=== PATIENT | female | born 1965 | race Two or more races ===

== ENCOUNTER 2018-02-11 21:09 | Emergency (ER) | payer OTHER ==
[~2018-02-11] VITALS: Ht 162.6 cm; Wt 70.3 kg
[2018-02-11 22:30] VITALS: BP 135/80
[2018-02-11] MEDS ORDERED: Norco 5mg/325mg tab ORAL ONE (22:30)
[2018-02-11] MEDS ORDERED: HYDROCODON-ACE1 EA15 ORAL (22:45)
[2018-02-11] MEDS ORDERED: IBUPROFEN600 MG ORAL (22:45)
[2018-02-11] MEDS ORDERED: PREDNISONE20 MG ORAL (22:45)
--- NOTE | 2018-02-11 22:46 | Emergency Room Report ---
History of Present Illness General Chief Complaint: Neck Pain Source: Patient Present Illness HPI This is a 53-year-old female without any past medical history. She presents with chief complaint of neck pain and left arm pain. Neck pain been ongoing for about a week. Arm pain been ongoing for about 2 days. Pain is 8 out of 10. Worse with movement. Also with numbness in her fingers. No trauma. Worse with movement of her neck. Has not anything for it. No incontinence of bowel or urine. No fever. Allergies: Coded Allergies: No Known Allergies (Unverified , 02/11/18) Patient History Past Medical History: none, see triage record, old chart reviewed Past Surgical History: other Pertinent Family History: none Social History: Denies: smoking Last Menstrual Period: 2007 Now: No : 3 Para: 3 Immunizations: other Reviewed Nursing Documentation: PMH: Agreed; PSxH: Agreed Nursing Documentation-PMH Past Medical History: No Stated History Review of Systems Eye: Denies: eye pain, blurred vision ENT: Denies: ear pain, nose congestion, throat swelling Respiratory: Denies: cough, shortness of breath Cardiovascular: Denies: chest pain, palpitations Gastrointestinal: Denies: abdominal pain, diarrhea, nausea, vomiting Musculoskeletal: Denies: back pain, joint pain Skin: Denies: rash Neurological: Denies: headache, numbness Endocrine: Denies: increased thirst, increased urine Hematologic/Lymphatic: Denies: easy bruising All Other Systems: negative except mentioned in HPI Physical Exam Vital Signs Date Time Temp Pulse Resp B/P (MAP) Pulse Ox O2 Delivery O2 Flow Rate FiO2 02/11/18 22:00 98.2 66 17 141/90 98 Room Air vitals normal Sp02 EP Interpretation: reviewed, normal General Appearance: well appearing, no apparent distress, alert Head: normocephalic, atraumatic Eyes: bilateral eye PERRL, bilateral eye EOMI ENT: hearing grossly normal, normal pharynx Neck: full range of motion, supple, no meningismus Respiratory: chest non-tender, lungs clear, normal breath sounds Cardiovascular #1: regular rate, rhythm, no murmur Gastrointestinal: normal bowel sounds, non tender, no mass, no organomegaly, no bruit, non-distended Musculoskeletal: back normal, gait/station normal, normal range of motion Psychiatric: mood/affect normal Skin: warm/dry Medical Decision Making Diagnostic Impression: Primary Impression: Neck pain Additional Impression: Cervical radiculopathy ER Course Patient with cervical radiculopathy. No evidence of ACS, PE, dissection, cauda equina syndrome, spinal epidural abscess or neoplastic process. We'll discharge home. Last Vital Signs Date Time Temp Pulse Resp B/P (MAP) Pulse Ox O2 Delivery O2 Flow Rate FiO2 02/11/18 22:00 98.2 66 17 141/90 98 Room Air Status: improved Disposition: HOME, SELF-CARE Condition: Stable Scripts Prednisone* (PREDNISONE*) 20 Mg Tablet 40 MG ORAL DAILY, #8 TAB Prov: Stalin Paulson MD 02/11/18 Ibuprofen* (MOTRIN*) 600 Mg Tablet 600 MG ORAL THREE TIMES A DAY, #30 TAB 0 Refills Prov: Stalin Paulson MD 02/11/18 Hydrocodone/Acetaminophen 5-325* (HYDROCODONE/ACETAMINOPHEN 5-325*) 1 Each Tablet 1 TAB ORAL Q6H PRN for For Pain, #20 TAB 0 Refills Prov: Stalin Paulson MD 02/11/18 Referrals: [facility],REFERRING (PCP) Additional Instructions: Follow-up with your doctor in a week. You may benefit from MRI of your neck if symptoms do improve. Return if symptom worsen. Stalin Paulson MD Feb 11, 2018 22:46
[2018-02-11 23:30] VITALS: BP 135/80
== END 2018-02-11 23:00 | disposition home or self-care (01) ==
LOC: EMR 22:38
DX: M54.2 Cervicalgia (principal); M54.12 Radiculopathy, cervical region
CPT/HCPCS: 99283; J7512

== ENCOUNTER 2018-02-18 18:13 | Emergency (ER) | payer BC, OTHER ==
[~2018-02-18] VITALS: Ht 162.6 cm; Wt 71.7 kg
[~2018-02-18 18:13] MED LIST: HYDROCODON-ACE1 EA15 ORAL; IBUPROFEN600 MG ORAL; PREDNISONE20 MG ORAL
[2018-02-18] MEDS ORDERED: NKM (18:23)
[2018-02-18 18:35] VITALS: BP 144/98
[2018-02-18] MEDS ORDERED: Norco 5mg/325mg tab ORAL ONE (18:45)
[2018-02-18] MEDS ORDERED: Methocarbamol 500mg tab ORAL ONE (18:45)
--- NOTE | 2018-02-18 18:45 | Emergency Room Report ---
History of Present Illness General Chief Complaint: Neck Pain Source: Patient Present Illness HPI 53-year-old female patient presents ER complaining of left-sided neck pain. reports pain radiates down to her arm for the past 10 days. Erwin was seen here 1 week ago for similar symptoms, states took medications provided at that time, states pain did not improve. Erwin has follow-up appointment on Friday for further evaluation and treatment by her primary care doctor. Reports pain still persistent so decided to come to ER for further treatment, states she was told by doctors office to come to the ER for an MRI of her neck. Denies injury or trauma since previous visit. Denies injury or trauma preceding initial symptom onset. Denies fever, chest pain, shortness of breath, abdominal pain. Denies WALKER or vision changes. Allergies: Coded Allergies: No Known Allergies (Unverified , 02/11/18) Patient History Past Medical History: see triage record Last Menstrual Period: menopause Reviewed Nursing Documentation: PMH: Agreed; PSxH: Agreed Nursing Documentation-PMH Past Medical History: No Stated History Review of Systems All Other Systems: negative except mentioned in HPI Physical Exam Vital Signs Date Time Temp Pulse Resp B/P (MAP) Pulse Ox O2 Delivery O2 Flow Rate FiO2 02/18/18 18:20 98.1 61 18 144/98 98 Room Air Sp02 EP Interpretation: reviewed, normal General Appearance: well appearing, no apparent distress, alert, GCS 15, non- toxic Head: normocephalic, atraumatic Eyes: bilateral eye normal inspection, bilateral eye PERRL ENT: hearing grossly normal, normal pharynx, no angioedema, normal voice, uvula midline, moist mucus membranes Neck: full range of motion, no meningismus, no bony tend Respiratory: lungs clear, normal breath sounds, no rhonchi, no respiratory distress, no accessory muscle use, no wheezing, speaking full sentences Cardiovascular #1: regular rate, rhythm, no edema Cardiovascular #2: 2+ radial (R), 2+ radial (L) Musculoskeletal: back normal, digits/nails normal, gait/station normal, normal range of motion, non-tender, other - NVI Neurologic: alert, oriented x3, responsive, motor strength/tone normal, sensory intact Psychiatric: mood/affect normal Skin: no rash Medical Decision Making PA Attestation Dr. Palmer is my supervising Physician whom patient management has been discussed with. Diagnostic Impression: Primary Impression: Cervical radiculopathy Additional Impression: Cervical spine degeneration ER Course Pt. presents to the ED c/o left sided neck pain radiating down hand. Ddx considered but are not limited to fracture, sprain, strain, contusion, dislocation, radiculopathy, arthritis, osteoarthritis, disc herniation, stenosis. No erythema, no warmth to touch, no fever, nontoxic appearing, low suspicion for septic joint. Soft compartments, no pulselessness, no pallor, no paresthesias, low suspicion for compartment syndrome at this time. Vital signs: are WNL, pt. is afebrile Ordered X-ray and pain medication. ER COURSE Provided with [place] pain medication. patient seen in the ER with her , will drive her home. An X-ray of the cervical spine shows no acute fracture, degenerative changes noted. Follow-up at schedule appointment for MRI. Discuss further referral at that time. Discuss results with the patient. Provided patient with copy of results. Instructed patient to followup with PCP and discuss results of report with patient, discuss need for further treatment and referral. Patient instructed on RICE method: rest, ice, compression, elevation. Patient instructed on rest, ice and heat. Contact information for orthopedic urgent care provided, follow-up with urgent care if unable to followup with primary care provider and get referral to foreign broadcast specialist. Followup with primary care provider. Discuss referral to ortho/pain management/ PT as needed. Discuss further imaging with MRI/CT as needed. DISCHARGE: -Rx provided for Tylenol for pain symptoms. -Rx provided for Methocarbamol. SE drowsiness, do not drink, drive, or operate heavy machinery while using. -Rx provided for lidocaine patch At this time pt. is stable for d/c to home. Patient is resting comfortably, in no acute distress, nontoxic appearing, talking without difficulty. Will provide printed patient care instructions, and any necessary prescriptions. Patient instructed to follow with primary care provider in 3 - 5 days and to request further follow-up as needed. Care plan and follow up instructions have been discussed with the patient prior to discharge. Take medications as directed. Patient questions asked and answered. Patient reports understanding and agreement to treatment plan. ER precautions given, patient instructed to return to ER immediately for any new or worsening of symptoms. - Please note that this Emergency Department Report was dictated using Dragon senior associate technology software, occasionally this can lead to erroneous entry secondary to interpretation by the dictation equipment. Other X-Ray Diagnostic Results Other X-Ray Diagnostic Results : X-Ray ordered: cervical spine # of Views/Limited Vs Complete: 3 View Indication: Pain EP Interpretation: Yes PA Xray: Interpretation reviewed, by supervising MD, and agrees with findings. Interpretation: no dislocation, no soft tissue swelling, no fractures, other - degenerative changes at C5-C6 with disc height loss and osteophytes Impression: No acute disease PA Scribe Text Jack Rose PA-C Last Vital Signs Date Time Temp Pulse Resp B/P (MAP) Pulse Ox O2 Delivery O2 Flow Rate FiO2 02/18/18 18:35 98.1 87 18 144/98 98 Room Air Status: improved Disposition: HOME, SELF-CARE Condition: Stable Scripts Acetaminophen* (TYLENOL EXTRA STRENGTH*) 500 Mg Tablet 500 MG ORAL Q8H PRN for Prn Headache/Temp > 101, #30 TAB 0 Refills Prov: Jayden Rose 02/18/18 Methocarbamol* (ROBAXIN*) 500 Mg Tablet 500 MG PO TID, #21 TAB 0 Refills Prov: Jayden Rose 02/18/18 Lidocaine (Lidocaine) 1 Each Adh..patch 5 % TP DAILY for 7 Days, #7 PATCH Prov: Jayden Rose 02/18/18 Patient Instructions: Cervical Radiculopathy, [id number], Degenerative Disk Disease Additional Instructions: Patient instructed to follow up with primary care provider at scheduled appointment and discuss further MRI referral and imaging at that time. Patient instructed on rest, ice and heat. Do not take muscle relaxant prior to drinking, driving, or operating heavy machinery. Take medications as directed. Patient questions asked and answered. ER precautions given, patient instructed to return to ER immediately for any new or worsening of symptoms. [facility] [address] [place], [id number] [email or web address] Jayden Rose Feb 18, 2018 18:45
--- NOTE | 2018-02-18 19:25 | Diagnostic Imaging Report ---
EXAM: XR Cervical Spine, 2 or 3 Views CLINICAL HISTORY: PAIN TECHNIQUE: Frontal and lateral views of the cervical spine. COMPARISON: No relevant prior studies available. FINDINGS: Vertebrae: No acute fracture or malalignment. Straightening of the normal cervical lordosis. Disc spaces: Degenerative changes worst at C5-C6 with disc height loss and osteophytes. Soft tissues: Unremarkable. IMPRESSION: No acute fracture or malalignment.
[2018-02-18] MEDS ORDERED: TYLENOL EXTRA500 MG ORAL (19:46)
[2018-02-18] MEDS ORDERED: LIDOCAINE700 M1 TP (19:46)
[2018-02-18] MEDS ORDERED: ROBAXIN500 MG PO (19:46)
[2018-02-18 19:50] VITALS: BP 140/90
== END 2018-02-18 20:38 | disposition home or self-care (01) ==
LOC: EMR 18:40
DX: M54.12 Radiculopathy, cervical region (principal)
CPT/HCPCS: 72040; 99283